=== PATIENT | female | born 1940 | race Caucasian/White ===

== ENCOUNTER 2024-11-15 19:07 | Emergency (ER) | payer MEDICARE, SELFPAY ==
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
--- NOTE | ~2024-11-15 | CT_ITS ---
CLINICAL HISTORY: Fall CT abdomen and pelvis without contrast Comparison: None Findings: No consolidation or effusion. Gallbladder is absent. There is dilatation of the common bile duct measuring 15 mm, which may be reservoir effect. No significant intrahepatic biliary dilatation. The liver is normal in size. Kidneys are normal in size and there is no hydronephrosis. Adrenal glands, spleen and pancreas are unremarkable. No bowel obstruction, pneumoperitoneum, or pneumatosis. Pelvic contents unremarkable. Normal appendix. Markedly distended urinary bladder. Levoscoliosis of the lumbar spine. Chronic appearing compression deformities at T12, L4 and L5. No acute fracture deformity seen. Arterial vascular calcifications. IMPRESSION: No acute findings. This document has been electronically signed by: Garfield Harp MD on 11/15/2024 20:51:27
--- NOTE | ~2024-11-15 | CT_ITS ---
CLINICAL HISTORY: Chest wall pain. fall unto chest. slipped CT chest without contrast Comparison: None Findings: Size is mildly enlarged. Coronary artery calcifications are present. The visualized thyroid and mediastinum are unremarkable. The lungs are clear. No effusion or pneumothorax. Scarring at the lung apices present. Please see same-day CT abdomen pelvis report for discussion of upper abdomen findings. No acute fracture deformity. Old inferior endplate compression deformity at T12. IMPRESSION: No acute findings in the chest. This document has been electronically signed by: Garfield Harp MD on 11/15/2024 21:01:17
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
[2024-11-15 19:13] VITALS: BP 162/66; PULSE 61; RESP 18; TEMP 36.5; BMI 19.9
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
[2024-11-15 21:18] VITALS: BP 132/66; PULSE 56; RESP 16; TEMP 36.8; O2SAT 98
== END 2024-11-15 21:20 | disposition home or self-care (01) ==
PROVIDERS: Emergency Provider Emergency Medicine
DX: S09.90XA Unspecified injury of head, initial encounter (principal); W18.09XA Striking against other object with subsequent fall, initial encounter; Y93.9 Activity, unspecified; Y92.009 Unspecified place in unspecified non-institutional (private) residence as the place of occurrence of the external cause; Y99.9 Unspecified external cause status; R07.9 Chest pain, unspecified
CPT/HCPCS: 70450; 71250; 72125; 74176; 99284

== ENCOUNTER → 2024-11-15 19:19 | Outpatient (BNV) | payer MEDICARE, SELFPAY | PROVIDERS: Emergency Provider Emergency Medicine; Visit Provider Radiology Diagnostic Radiology | DX: R10.2 Pelvic and perineal pain (principal); R07.9 Chest pain, unspecified; S09.90XA Unspecified injury of head, initial encounter | CPT/HCPCS: 70450; 71250; 72125; 74176 ==